=== PATIENT | female | born 1995 | race Caucasian/White ===

== ENCOUNTER 2018-07-23 14:32 | Outpatient (CLI) | END 2018-07-23 16:25 | disposition home or self-care (01) ==

== ENCOUNTER 2018-07-26 13:04 | Outpatient (CLI) | END 2018-07-26 16:45 | disposition home or self-care (01) ==

== ENCOUNTER 2018-07-29 09:20 | Outpatient (CLI) | END 2018-07-29 11:50 | disposition home or self-care (01) ==

== ENCOUNTER 2018-08-01 09:44 | Outpatient (CLI) | END 2018-08-01 11:18 | disposition home or self-care (01) ==

== ENCOUNTER 2018-08-02 10:49 | Inpatient (IN) | payer BC ==
[~2018-08-02] VITALS: Ht 162.6 cm; Wt 97.3 kg
[~2018-08-02 10:49] MED LIST: FER325 PO; PREN-93 PO
--- NOTE | 2018-08-02 10:52 | PREAC ---
Date/Time of Note Date/Time of Note DATE: 08/02/18 TIME: 10:51 Anesthesia Eval and Record Evaluation Time Pre-Procedure Interview DATE: 08/02/18 TIME: 10:51 Age 23 Sex female NPO: 8 hrs Preoperative diagnosis twin breech Planned procedure c section Past Medical History Past Medical History: None Surgery & Anesthesia Issues No known issue Meds Anticoagulation: No Beta Priyanka within 24 hr: No Reason Beta Priyanka not given: Pt. not on B-Priyanka Reported Medications Ferrous Sulfate* (Ferrous Sulfate*) 325 Mg Tabec, 325 MG PO DAILY, TAB 07/23/18 Vit No.124/Iron/FA ( Vitamin Tablet) 1 Each Tablet, 1 EACH PO DAILY, TAB 07/23/18 Meds reviewed: Yes Allergies Coded Allergies: No Known Allergy (Unverified , 07/20/18) Allergies Reviewed: Yes Labs/Studies Labs Reviewed: Reviewed by anesthesiologist test: Positive Studies: ECG (n/a), CXR (n/a) Pre-procedure Exam Airway: Adequate mouth opening Mallampati: Mallampati I Teeth: Normal Lung: Normal Heart: Normal ASA Physical Status ASA physical status: 2 Emergency: None Planned Anesthetic Neuraxial: Spinal Planned Pain Management Sub-arachniod narcotics Pre-operative Attestations Prior to commencing anesthesia and surgery, the patient was re-evaluated, there was verification of: *The patient's identity *The results of appropriate recent lab work and preoperative vital signs *The above evaluation not changing prior to induction *Anesthetic plan, risk benefits, alternative and complications discussed with patient/family; questions answered; patient/family understands, accepts and wishes to proceed. DANILO ROLAND MD Aug 02, 2018 10:52
[2018-08-02 11:20] VITALS: BP 102/55; PULSE 82; RESP 17; Ht 162.6 cm; Wt 97.3 kg
[2018-08-02] MEDS ORDERED: OXYTOCIN 30 UNITS/LR 500 ML IV PRN ×2 (11:30→13:00)
[2018-08-02] MEDS ORDERED: CEFAZOLIN 2 GM/50 ML (PMX) 50 ML IVPB SCH (11:30)
[2018-08-02] MEDS ORDERED: MISOPROSTOL 200 MCG TAB PR PRN ×2 (11:30→13:00)
[2018-08-02] MEDS ORDERED: OXYTOCIN 30 UNITS/LR 500 ML IV SCH ×2 (11:30→12:43)
[2018-08-02] MEDS ORDERED: METHYLERGONOVINE 0.2 MG INJ IM PRN ×2 (11:30→13:00)
[2018-08-02] MEDS ORDERED: CARBOPROST 250 MCG INJ IM PRN ×2 (11:30→13:00)
[2018-08-02] MEDS: LACTATED RINGER'S 1,000 ML IV SCH ×2 (11:32→17:38)
[2018-08-02] MEDS ORDERED: LACTATED RINGER'S 1,000 ML IV SCH (12:43)
[2018-08-02] MEDS ORDERED: BUPIVACAINE 0.75%/DEXT (SPINAL) 2 ML INJ ONE (12:48)
[2018-08-02] MEDS ORDERED: METOCLOPRAMIDE 10 MG INJ ONE (12:48)
[2018-08-02] MEDS ORDERED: KETOROLAC 30 MG INJ ONE (12:48)
[2018-08-02] MEDS ORDERED: ONDANSETRON 4 MG INJ ONE (12:48)
[2018-08-02] MEDS ORDERED: morphine SULFATE/PF (10 MG/10 ML) INJ ONE (12:48)
[2018-08-02] MEDS ORDERED: NACL 0.9% 3 ML SYG IV SCH (13:00)
[2018-08-02] MEDS ORDERED: HYDROCODONE/APAP (5/325) TAB PO PRN (13:00)
[2018-08-02] MEDS ORDERED: LANOLIN HPA 1 PKT TOP PRN (13:00)
[2018-08-02] MEDS ORDERED: CEFAZOLIN 1 GM/50 ML (PMX) 50 ML IVPB SCH (13:00)
[2018-08-02] MEDS ORDERED: KETOROLAC 30 MG INJ IV PRN ×2 (13:00→14:30)
[2018-08-02] MEDS ORDERED: OXYTOCIN 30 UNITS/LR 500 ML IV ONE (13:36)
[2018-08-02] MEDS ORDERED: EPHEDrine 25 MG/5 ML SYG ONE (13:37)
--- NOTE | 2018-08-02 13:44 | QN ---
Documentation Comment see op note [id number] KEVIN TANNER M.D. Aug 02, 2018 13:44
--- NOTE | 2018-08-02 14:06 | PAC ---
Date/Time of Note Date/Time of Note DATE: 08/02/18 TIME: 14:06 Post-Anesthesia Notes Post-Anesthesia Note Last documented vital signs Vital Signs Date Temp Pulse Resp B/P (MAP) Pulse Ox O2 O2 Flow FiO2 Time Delivery Rate 08/02/18 98.2 82 17 102/55 100 Room Air 11:20 (71) Activity: WNL Respiratory function: WNL Cardiovascular function: WNL Mental status: Baseline Pain reasonably controlled: Yes Hydration appropriate: Yes Nausea/Vomiting absent: No DANILO ROLAND MD Aug 02, 2018 14:06
[2018-08-02] MEDS ORDERED: morphine 2 MG INJ IV PRN ×3 (14:30)
[2018-08-02] MEDS ORDERED: DIPHENHYDRAMINE 50 MG INJ IV PRN ×2 (14:30)
[2018-08-02] MEDS ORDERED: NALOXONE (0.4 MG/ML) INJ IV PRN (14:30)
[2018-08-02] MEDS ORDERED: morphine (1 MG/ML) 10ML SYRINGE IV PRN ×3 (14:30)
[2018-08-02] MEDS ORDERED: ONDANSETRON 4 MG INJ IV PRN ×2 (14:30)
--- NOTE | 2018-08-02 14:42 | OPR ---
DATE OF OPERATION: 08/02/2018 PREOPERATIVE DIAGNOSES: A 23-year-old who is para 0-0-0-0, at 37 weeks' di-di twins, vertex breech presentation. POSTOPERATIVE DIAGNOSES: A 23-year-old who is para 0-0-0-0, at 37 weeks' di-di twins, vertex breech presentation. OPERATION PERFORMED: Primary via Pfannenstiel skin incision. SURGEON: Kevin Tanner MD GRAPHIC DESIGN SPECIALIST: Lexi Tadeo MD ANESTHESIA: Spinal anesthesia. ANTIBIOTICS GIVEN: 2 grams of Ancef prior to the procedure. FINDINGS: Twin A, Apgars 8 and 9 abhishek breech presentation, twin B vertex presentation. Cord around the neck x1, Apgars 8 and 9. Normal appearing ovaries, tubes and uterus. DISPOSITION: Stable to recovery room. ESTIMATED BLOOD LOSS: 1000 mL URINE OUTPUT: 200 mL clear urine at the end of the procedure. One dose of Methergine was given prophylactically. DESCRIPTION OF PROCEDURE: After risks, benefits and alternatives of the procedure were discussed with the patient, the patient signed consent, was taken to the operating room where spinal anesthesia was found to be adequate. She was then prepared and draped in normal sterile fashion in dorsal supine position in a leftward tilt. A Pfannenstiel skin incision was then made with a scalpel and carried throughout the underlying layer of the fascia with the Bovie. The fascia was then incised medially, extended laterally using the Bovie instrument. Fascia was then superiorly and inferiorly from of the rectus abdominis muscles using the Bovie instrument. The rectus abdominis was then laterally. Peritoneum was entered sharply, stretched laterally, manually and sharply. Bladder blade was then inserted to protect the bladder. Uterus incision then created using the scalpel and carried laterally manually. Twin A abhishek breech presentation was exteriorized without any complication. Cord clamped and cut. Nose and mouth were suctioned. Twin A was handed off to the waiting respiratory NICU. Twin B was found to be in vertex presentation was exteriorized. There was not any complication. Cord clamped and cut. Nose and mouth were suctioned. Twin B was handed off to the waiting respiratory NICU. Cord blood was collected for both placentas. Placenta was then removed manually. Uterus was exteriorized and cleared for clots and debris. Uterine incision was then repaired using #1 chromic stitch in running locked fashion. Second stitch was used to create excellent reinforcement. One dose of Methergine was given. The gutters were then cleared of all clots and debris. Uterus was then placed back in the pelvis. Rectus abdominal muscles then reapproximated using 2-0 chromic stitch in interrupted figure. Fascia was then reapproximated using #1 Vicryl stitch in running fashion. Subcutaneous layer was irrigated and dry. Subcutaneous layer was then reapproximated using 2-0 plain stitch in interrupted figure. Skin was then closed using the stapler. All instrument count, lap count, needle count were found to be correct x3. The patient was taken back to recovery room in stable clinical condition and awakened. Dictated By: KEVIN TANNER MD, RA/RAFFI Conf#: [id number] DID#: [id number] MTDD
[2018-08-02 17:15] VITALS: BP 121/56; PULSE 65; RESP 18
--- NOTE | 2018-08-02 17:15 | NUR ---
ADMITTED PT WITH TWINS BABY "A", AND BABY"B". ID BANDS, WITH MOM AND DAD. ORIENTED PT TO ROOM AND UNIT. FUNDUS FIRM, MODERATE LOCHIA, NO CLOTS.PT COMFORTABLE, DENIES PAIN. Addendum: 08/02/18 at 1843 by JUJU ELLIS RN Amended: Links added.
[2018-08-02 20:00] VITALS: BP 109/54; PULSE 68; RESP 19
[2018-08-02] MEDS: CEFAZOLIN 1 GM/50 ML (PMX) 50 ML IVPB SCH (21:01)
--- NOTE | 2018-08-03 00:05 | OPPN ---
Date/Time of Note Date/Time of Note DATE: 08/03/18 TIME: 00:04 Anesthesia Follow up Anesthesia Follow up Last documented vital signs Vital Signs Date Temp Pulse Resp B/P (MAP) Pulse Ox O2 O2 Flow FiO2 Time Delivery Rate 08/02/18 98.1 68 19 109/54 98 Room Air 20:00 (72) Respiratory function: WNL Cardiovascular function: WNL Comments A23 year female s/p spinal duramorph for post op pain POD #1 ia doing fine, no pain, N/V, headache, itching, no neural deficit. DANILO ROLAND MD Aug 03, 2018 00:05
[2018-08-03 00:10] VITALS: BP 108/56; PULSE 72; RESP 20
[2018-08-03] MEDS: LACTATED RINGER'S 1,000 ML IV SCH ×2 (01:36→10:19)
[2018-08-03 03:30] VITALS: BP 106/55; PULSE 66; RESP 18
[2018-08-03] MEDS: CEFAZOLIN 1 GM/50 ML (PMX) 50 ML IVPB SCH ×2 (04:46→12:31)
--- NOTE | 2018-08-03 05:16 | NUR ---
EOSS: Pt is in stable condition. No distress noted. Fundus firm with moderate lochia noted. Pt got up to sit on chair, no dizziness noted, tolerated well. Bonding well with babies.
[2018-08-03 08:00] VITALS: BP 111/53; PULSE 76; RESP 19
[2018-08-03] MEDS ORDERED: INFLUENZA VIRUS VACCINE 0.5 ML (DISPENSING) IM* ONE (09:00)
--- NOTE | 2018-08-03 12:27 | QN ---
Documentation Comment Pt is feeling well VSS CBC pending mild lochia Plan d/c RAÚL reed, Advance diet F/U CBC KEVIN TANNER M.D. Aug 03, 2018 12:27
--- NOTE | 2018-08-03 13:50 | NUR ---
ZAPATA CATHETER REMOVED. TIP INTACT. INSTRUCTED PATIENT TO CALL WHEN NEEDS TO VOID AND PATIENT VERBALIZED UNDERSTANDING.
[2018-08-03] MEDS: HYDROCODONE/APAP (5/325) TAB PO PRN (15:57)
[2018-08-03 16:00] VITALS: BP 105/57; PULSE 79; RESP 18
--- NOTE | 2018-08-03 18:41 | NUR ---
EOSS: PATIENT IN STABLE CONDITION. BONDING WELL WITH HER BABIES. DENIES PAIN AT THIS TIME. VOIDEDX1, WELL. USING BREASTPUMP. SEEN BY ZIGZAG STITCHER TODAY.
[2018-08-03] MEDS: IBUPROFEN 600 MG TAB PO SCH (18:47)
[2018-08-03 20:00] VITALS: BP 102/59; RESP 18
[2018-08-04] MEDS: IBUPROFEN 600 MG TAB PO SCH ×5 (00:26→23:29)
[2018-08-04 04:00] VITALS: BP 101/46; PULSE 72; RESP 18
--- NOTE | 2018-08-04 06:47 | NUR ---
EOSS: PATIENT BONDING WELL WITH TWINS, AMBULATES WELL, NO COMPLAINS OF DISCOMFORT.
[2018-08-04] MEDS: HYDROCODONE/APAP (5/325) TAB PO PRN (08:34)
[2018-08-04 08:35] VITALS: BP 105/56; PULSE 78; RESP 18
--- NOTE | 2018-08-04 13:46 | QN ---
Documentation Comment see d/c note [id number] KEVIN TANNER M.D. Aug 04, 2018 13:46
[2018-08-04] MEDS ORDERED: MAGNESIUM HYDROXIDE 30ML CUP PO PRN (14:00)
[2018-08-04 16:00] VITALS: BP 100/60; PULSE 74; RESP 18
--- NOTE | 2018-08-04 18:36 | NUR ---
EOSS: Vital sign stable, voiding without difficulty. Bonding with baby.
--- NOTE | 2018-08-04 18:38 | NUR ---
EOSS: Vital signs stable, denies pain or discomfort. Fundus firm, lochia scant. Incision site has no redness or drainage. Bonding with her twins.
[2018-08-04 20:30] VITALS: BP 108/61; PULSE 78; RESP 18
--- NOTE | 2018-08-05 02:22 | DS ---
DATE OF ADMISSION: 08/02/2018 DATE OF DISCHARGE: 08/04/2018 HOSPITAL COURSE: The patient is status post 3 days ago. Please see operative report for t he surgery. On postop day #1, she was doing well. Vital signs stable. CBC was stable. She was enc ouraged to ambulate and use pain medication p.r.n. pain. She was passing gas. Incision was healing well on postop day #3. She will be discharged tomorrow on postop day #4 with prescription given for [place] and Motrin. She was told to see me in my office in 2 weeks' time for incision check. She also received milk of magnesia b.i.d. p.r.n. for constipation. Dictated By: KEVIN TANNER MD, RA/RAFFI Conf#: [id number] DID#: [id number]
[2018-08-05 04:00] VITALS: BP 113/53; PULSE 77; RESP 18
--- NOTE | 2018-08-05 06:15 | NUR ---
EOSS: PATIENT IN STABLE CONDITION, POSSIBLE DISCHARGE TODAY. BONDS WELL WITH TWINS.
[2018-08-05] MEDS: IBUPROFEN 600 MG TAB PO SCH (06:43)
[2018-08-05 08:10] VITALS: BP 120/54; PULSE 70; RESP 18
--- NOTE | 2018-08-05 10:50 | NUR ---
P[place]mont removed from incision site as ordered by MD. Incision has no redness or drainage noted.
--- NOTE | 2018-08-05 11:00 | NUR ---
Discharge instructions given to patient including incision site care and signs and symptoms to watch out for and when to call the doctor. Patient verbalized understanding. Patient to call clinic for follow up appointment.
== END 2018-08-05 14:35 | disposition home or self-care (01) | DRG 788 ==
LOC: L-D 10:49 → PP1 17:00
PROVIDERS: ADMIT Obstetrics & Gynecology; ATTEND Obstetrics & Gynecology
PROC: 10D00Z1 Extraction of Products of Conception, Low, Open Approach (ICD-10-PCS; principal; 2018-08-02 12:30)
DX: O69.81X1 Labor and delivery complicated by cord around neck, without compression, fetus 1 (principal); O32.1XX2 Maternal care for breech presentation, fetus 2; O30.003 Twin pregnancy, unspecified number of placenta and unspecified number of amniotic sacs, third trimester; Z3A.37 37 weeks gestation of pregnancy; Z37.2 Twins, both liveborn
CPT/HCPCS: 85025; 85610; 85730; 86592; 86850; 86900; 86901; 87340; 88307; 99464; J0690; J1885; J2210; J2274; J2405; J2590; J2765; J7120